=== PATIENT | female | born 1965 | race Caucasian/White ===

== ENCOUNTER → 2017-08-20 | Outpatient (CLI) | payer MEDICAID ==
--- NOTE | 2017-08-23 09:58 | MM ---
Reason for exam: screening (asymptomatic). Last mammogram was performed 1 year and 5 months ago. Physical Findings: A clinical breast exam by your physician is recommended on an annual basis and results should be correlated with mammographic findings. MG 3D Screening Mammo W/Cad Bilateral CC and MLO view(s) were taken. Prior study comparison: March 12, 2016, bilateral MG 3d diag mammo w/cad [facility]. March 12, 2015, left breast MG work up mamm w CAD LT. The breast tissue is heterogeneously dense. This may lower the sensitivity of mammography. Finding: There is questionable architectural distortion in the upper inner quadrant of the left breast. New finding since March 12, 2016 and March 12, 2015. ASSESSMENT: Incomplete: need additional imaging evaluation, BI-RAD 0 RECOMMENDATION: Special view mammogram of the right breast. If lesion persists on supplemental views, image directed ultrasound is recommended. [facility] will attempt to contact patient to return for supplemental views and ultrasound if indicated.
== END | disposition home or self-care (01) ==
LOC: RADMAMWWP 07:27
PROVIDERS: ATTEND Family Medicine
DX: Z12.31 Encounter for screening mammogram for malignant neoplasm of breast (principal)
CPT/HCPCS: 77063; G0202

== ENCOUNTER → 2017-08-25 | Outpatient (CLI) | payer MEDICAID ==
--- NOTE | 2017-08-26 08:19 | MM ---
Reason for exam: additional evaluation requested from abnormal screening. Last mammogram was performed less than 1 month ago. Physical Findings: Nurse Summary: 2cm nodule in the right breast at 12 o'clock (nurse yelena). MG 3D Work Up W/Cad RT Spot compression CC, spot compression MLO, and LM view(s) were taken of the right breast. Prior study comparison: August 20, 2017, bilateral MG 3d screening mammo w/cad. March 12, 2016, bilateral MG 3d diag mammo w/cad [facility]. The breast tissue is heterogeneously dense. This may lower the sensitivity of mammography. There are 3 large circumscribed masses in the central and lateral right breast measuring 2.0-2.3cm. Palpable marker placed. These results were verbally communicated with the patient and result sheet given to the patient on 08/25/17. ASSESSMENT: Incomplete: need additional imaging evaluation, BI-RAD 0 RECOMMENDATION: Ultrasound of the right breast.
--- NOTE | 2017-08-26 08:22 | USB ---
Reason for exam: additional evaluation requested from abnormal screening. US Breast Workup Limited RT Right breast ultrasound demonstrates a 2.2 x 1.6 x 2.3cm cystic lesion at 9 o'clock, a 2.2 x 1.9 x 1.1cm cystic lesion at 9 o'clock with some internal echoes and a 2.6 x 1.0 x 2.3cm cystic lesion at 9 o'clock. Left breast ultrasound demonstrates a 1.9 x 0.9 x 1.9cm cystic lesion at 10 o'clock. These are all benign. These results were verbally communicated with the patient and result sheet given to the patient on 08/25/17. ASSESSMENT: Benign, BI-RAD 2 RECOMMENDATION: Return to routine screening mammogram schedule for both breasts. Manage patient on a clinical basis. Cyst aspiration can be performed if symptomatic.
== END | disposition home or self-care (01) ==
LOC: RADMAMWWP 14:57
PROVIDERS: ATTEND Family Medicine
DX: R92.8 Other abnormal and inconclusive findings on diagnostic imaging of breast (principal)
CPT/HCPCS: 76642; G0206; G0279

== ENCOUNTER 2018-01-18 17:16 | Emergency (ER) | payer MEDICAID ==
[2018-01-18 17:59] VITALS: BP 116/75; PULSE 77; RESP 20; TEMP 98.1
[2018-01-18] MEDS ORDERED: DIPH,PERTUS(ACELL)TETVAC-LF 0.5 ML VIAL IM ONE (18:47)
--- NOTE | 2018-01-18 20:04 | XR ---
PROCEDURE: XR finger LT 3 views DATE AND TIME: 01/18/2018 7:28 PM REFERRING PHYSICIAN: Jay Chew CLINICAL INDICATION: PHH, Pain TECHNIQUE: 3 views of the fifth finger were obtained. COMPARISON: None FINDINGS: There is no fracture or malalignment. The tip of the fifth digit shows soft tissue lacerati on changes, but no soft tissue emphysema and no radiopaque foreign bodies. IMPRESSION: Soft tissue laceration, fifth digit.
--- NOTE | 2018-01-18 20:45 | ED ---
General Adult HPI - General Chief complaint: Wound/Laceration Stated complaint: finger lac Time Seen by Provider: 01/18/18 18:12 Source: patient, RN notes reviewed Mode of arrival: ambulatory Limitations: no limitations - History of Present Illness Initial comments: 52-year-old female presents to the emergency department for a laceration to the fifth digit on the left hand. States she was using a mandolin earlier this evening to slice an egg plant when she slipped and cut through her fingernail. Patient immediately came to the ER after that. Patient states she does not know when she had her last tetanus. Patient states she has full range of motion of affected finger. - Related Data Home Medications Medication Instructions Recorded Confirmed Levothyroxine Sodium [Synthroid] 25 mcg PO DAILY 08/08/17 08/08/17 Previous Rx's Medication Instructions Recorded Hydrocodone/Acetaminophen [[place] 1 each PO Q6HR PRN #20 tab 08/08/17 5-325] Ibuprofen [Motrin] 600 mg PO Q8HR PRN #20 tab 08/08/17 Cephalexin [Keflex] 500 mg PO Q12HR #20 cap 01/18/18 Allergies Allergy/AdvReac Type Severity Reaction Status Date / Time No Known Allergies Allergy Verified 01/18/18 17:59 Review of Systems ROS Statement: Those systems with pertinent positive or pertinent negative responses have been documented in the HPI. ROS Other: All systems not noted in ROS Statement are negative. Past Medical History Past Medical History: Thyroid Disorder History of Any Multi-Drug Resistant Organisms: None Reported Past Surgical History: No Surgical Hx Reported Past Psychological History: No Psychological Hx Reported Smoking Status: Never smoker Past Alcohol Use History: Occasional Past Drug Use History: None Reported General Exam Limitations: no limitations General appearance: alert Respiratory exam: Present: normal lung sounds bilaterally. Absent: respiratory distress, wheezes, rales, rhonchi, stridor Cardiovascular Exam: Present: regular rate, normal rhythm, normal heart sounds. Absent: systolic murmur, diastolic murmur, rubs, gallop, clicks Extremities exam: Present: full ROM, tenderness, normal capillary refill, other (2 cm laceration starting at the tip of the fifth digit on the left hand and extending up through the nail.). Absent: normal inspection Course Vital Signs 01/18/18 17:57 Temperature 98.1 F Pulse Rate 77 Respiratory 20 Rate Blood Pressure 116/75 O2 Sat by Pulse 98 Oximetry Procedures - Procedures Initial comment: Affected area fifth digit of left hand was numbed by a digital block using 2 cc of 1% lidocaine. Wound was then irrigated with sterile water and cleaned with chlorhexidine. Finger was further locally numbed with another 2 mL of 1% lidocaine. The lateral side of the nail was removed. 5 simple interrupted sutures were applied to the laceration. One of the sutures was through the nail. She was told to return in 10 days to have sutures removed unless she noticed signs of infection including swelling, heat, discharge, increased redness. Medical Decision Making - Medical Decision Making 52-year-old female presents to the emergency department for laceration extending through the nail of the fifth digit. X-ray was obtained which showed no damage to the bone. Lateral part of nail was removed and the laceration was sutured with 5 simple interrupted sutures. Patient was given Keflex to prevent infection. Patient will follow-up in 10 days to have sutures removed. Patient will also come back to the emergency Department if she notices any signs of infection such as discharge, swelling, or increased heat or redness. Disposition Clinical Impression: Laceration Disposition: HOME SELF-CARE Condition: Good Instructions: Care For Your Stitches (ED), Laceration (ED) Additional Instructions: Please return to ER if you notice any signs of infection such as discharge, increased swelling, heat and redness. Please return to have stitches removed in 10 days. Prescriptions: Cephalexin [Keflex] 500 mg PO Q12HR #20 cap Referrals: Chari Broussard MD [Primary Care Provider] - 1-2 days Decision Time: 20:38
== END 2018-01-18 20:45 | disposition home or self-care (01) ==
LOC: EC 17:16
DX: S61.317A Laceration without foreign body of left little finger with damage to nail, initial encounter (principal); E07.9 Disorder of thyroid, unspecified; Z79.899 Other long term (current) drug therapy; Z23 Encounter for immunization; W26.8XXA Contact with other sharp object(s), not elsewhere classified, initial encounter; Y93.89 Activity, other specified
CPT/HCPCS: 11760; 90471; 90715; 99283

== ENCOUNTER 2018-03-25 07:28 | Day surgery (SDC) | payer MEDICAID ==
[2018-03-07 10:02] VITALS: BMI 24.1
[~2018-03-25 07:28] MED LIST: LACTATED RINGERS 1,000 ML IV SCH
[2018-03-25 07:55] VITALS: RESP 16; TEMP 98.7
[2018-03-25] MEDS ORDERED: LIDOCAINE 1% 20 ML VIAL (10MG/ML) FOR IV START INTRADERMA ONE (08:09)
[2018-03-25] MEDS ORDERED: PROPOFOL 10 MG/ML 20 ML VIAL IV ONE (08:25)
--- NOTE | 2018-03-25 08:42 | P.PCN ---
Date of Procedure: 03/25/18 Procedure(s) Performed: BRIEF HISTORY: Patient is a 52-year-old pleasant white female, scheduled for an elective colonoscopy as a part of screening for colorectal neoplasia. PROCEDURE PERFORMED: Colonoscopy. PREOPERATIVE DIAGNOSIS: Screening for colon cancer. IV sedation per Anesthesia. PROCEDURE: After informed consent was obtained, the patient, was brought into the endoscopy unit. IV sedation was administered by Anesthesia under continuous monitoring. Digital rectal examination was normal. Initially the Olympus CF- 160 flexible video colonoscope was then inserted in the rectum, gradually advanced into the cecum without any difficulty. Careful examination was performed as the scope was gradually being withdrawn. Ileocecal valve and the appendiceal orifice were visualized and appeared normal. Prep was excellent. Mucosa of the cecum, ascending colon, transverse colon, descending colon, sigmoid colon, and rectum appeared normal. Retroflexion was performed in the rectum and no lesions were seen. The patient tolerated the procedure well. IMPRESSION: Normal-appearing colon from rectum to cecum with no evidence of colorectal neoplasia . RECOMMENDATIONS: Findings of this examination were discussed with the patient less her family. She was advised to have a repeat screening colonoscopy in .
[2018-03-25 09:03] VITALS: BP 102/71; PULSE 77
== END 2018-03-25 09:23 | disposition home or self-care (01) ==
LOC: ORWHC2ENDO 07:28
PROVIDERS: ATTEND Internal Medicine Gastroenterology
DX: Z12.11 Encounter for screening for malignant neoplasm of colon (principal); E07.9 Disorder of thyroid, unspecified; Z79.899 Other long term (current) drug therapy
CPT/HCPCS: 81025; 45378; J2704

== ENCOUNTER → 2018-08-15 | Outpatient (CLI) | payer MEDICAID ==
[2018-08-15 16:02] LABS: HCT 42.5 % (34.0-46.0); HGB 13.6 gm/dL (11.4-16.0); MCHC 32.1 g/dL (31.0-37.0); MCV 96.6 fL (80.0-100.0); Platelet Count 277 k/uL (150-450); RDW 12.5 % (11.5-15.5); WBC 5.6 k/uL (3.8-10.6)
[2018-08-15 16:30] LABS: T4, Free (Free Thyroxine) 1.12 ng/dL (0.78-2.19)
[2018-08-16 04:23] LABS: Vitamin D 25 Hydroxy 33.1 ng/mL (30.0-100.0)
[2018-08-16 04:28] LABS: Progesterone <0.2 ng/mL
== END | disposition home or self-care (01) ==
LOC: LABWHC1 14:55
PROVIDERS: ATTEND Obstetrics & Gynecology
DX: E03.9 Hypothyroidism, unspecified (principal); R53.83 Other fatigue; Z78.0 Asymptomatic menopausal state
CPT/HCPCS: 36415; 82306; 82607; 82670; 83001; 84144; 84403; 84439; 84443; 85027

== ENCOUNTER → 2018-09-26 | Outpatient (CLI) | payer MEDICAID | END | disposition home or self-care (01) | LOC: LABWHC1 08:43 | PROVIDERS: ATTEND Obstetrics & Gynecology | DX: R53.83 Other fatigue (principal); R14.0 Abdominal distension (gaseous); E55.9 Vitamin D deficiency, unspecified | CPT/HCPCS: 36415; 82670; 83001; 84403 ==

== ENCOUNTER → 2018-12-29 | Outpatient (CLI) | payer MEDICAID ==
--- NOTE | 2018-12-30 09:15 | MM ---
Reason for exam: screening (asymptomatic). Last mammogram was performed 1 year and 4 months ago. Physical Findings: A clinical breast exam by your physician is recommended on an annual basis and results should be correlated with mammographic findings. MG 3D Screening Mammo W/Cad Bilateral CC and MLO view(s) were taken. Prior study comparison: August 25, 2017, right breast MG 3d work up w/cad RT. August 20, 2017, bilateral MG 3d screening mammo w/cad. The breast tissue is extremely dense which could obscure a lesion on mammography. No suspicious abnormality. ASSESSMENT: Negative, BI-RAD 1 RECOMMENDATION: Routine screening mammogram of both breasts in 1 year.
== END ==
LOC: RADMAMWWP 15:50
PROVIDERS: ATTEND Obstetrics & Gynecology
DX: Z12.31 Encounter for screening mammogram for malignant neoplasm of breast (principal)
CPT/HCPCS: 77063; 77067

== ENCOUNTER → 2018-12-29 | Outpatient (CLI) | payer MEDICAID ==
--- NOTE | 2018-12-30 07:24 | US ---
EXAMINATION TYPE: US carotid duplex BILAT DATE OF EXAM: 12/29/2018 COMPARISON: NONE CLINICAL HISTORY: R09.89 Carotid bruit. Bruit EXAM MEASUREMENTS: RIGHT: Peak Systolic Velocity (PSV) cm/sec ----- Right CCA: 76.4 ----- Right ICA: 121.1 ----- Right ECA: 108.2 ICA/CCA ratio: 1.6 RIGHT: End Diastole cm/sec ----- Right CCA: 30.2 ----- Right ICA: 62.9 ----- Right ECA: 25.4 LEFT: Peak Systolic Velocity (PSV) cm/sec ----- Left CCA: 80.9 ----- Left ICA: 106.9 ----- Left ECA: 96.5 ICA/CCA ratio: 1.3 LEFT: End Diastole cm/sec ----- Left CCA: 32.5 ----- Left ICA: 55.1 ----- Left ECA: 22.8 VERTEBRALS (direction of flow): Right Vertebral: Antegrade Left Vertebral: Antegrade Rhythm: Normal Bilateral intimal thickening, no elevated velocities, no significant stenosis. IMPRESSION: No stenosis Criteria for Assigning % of Stenosis / Diameter reduction (Estimation based on the indirect measurements of the internal carotid artery velocities (ICA PSV). 1. Normal (no stenosis)=ICA PSV < 125 cm/s: ratio < 2.0: ICA EDV<40 cm/s. 2. Less than 50% stenosis=ICA PSV < 125 cm/s: ratio < 2.0: ICA EDV<40 cm/s. 3. 50 to 69% stenosis=ICA PSV of 125 to 230 cm/s: ration 2.0 ? 4.0: ICA EDV 40-100 cm/s. 4. Greater than 70% stenosis to near occlusion= ICA PSV > 230 cm/s: ratio > 4.0: ICA EDV > 100 cm/s. 5. Near occlusion= ICA PSV velocities may be low or undetectable: variable ratio and ICA EDV. 6. Total occlusion=unable to detect flow.
== END | disposition home or self-care (01) ==
LOC: RADUSWWP 15:53
PROVIDERS: ATTEND Family Medicine
DX: R09.89 Other specified symptoms and signs involving the circulatory and respiratory systems (principal)
CPT/HCPCS: 93880

== ENCOUNTER → 2019-02-08 | Outpatient (CLI) | payer MEDICAID ==
[2019-02-08 19:42] LABS: T4, Free (Free Thyroxine) 1.2 ng/dL (0.80-1.80)
== END ==
LOC: LABWHC1 13:13
PROVIDERS: ATTEND Obstetrics & Gynecology
DX: F41.9 Anxiety disorder, unspecified (principal); N95.1 Menopausal and female climacteric states; R53.83 Other fatigue
CPT/HCPCS: 36415; 82670; 83001; 84403; 84439; 84443

== ENCOUNTER → 2019-10-09 | Outpatient (CLI) | payer MEDICAID ==
[2019-10-09 18:52] LABS: Estradiol 41.6 pg/mL; Follicle Stimulating Hormone 35.8 mIU/mL; T4, Free (Free Thyroxine) 1.1 ng/dL (0.80-1.80)
== END | disposition home or self-care (01) ==
LOC: LABWHC1 13:56
PROVIDERS: ATTEND Obstetrics & Gynecology
DX: E03.9 Hypothyroidism, unspecified (principal); R53.83 Other fatigue; E55.9 Vitamin D deficiency, unspecified; G47.00 Insomnia, unspecified
CPT/HCPCS: 36415; 82306; 82670; 83001; 84403; 84439; 84443

== ENCOUNTER → 2020-07-30 | Outpatient (CLI) | payer MEDICAID ==
[2020-07-30 17:02] LABS: ALT 11 U/L (8-44); AST 15 U/L (13-35); African American GFR (CKD) 97.6 (60.0-200.0); Albumin/Globulin Ratio 2.05 (1.60-3.17); Alkaline Phosphatase 64 U/L (41-126); BUN/Creat Ratio 23.75 Ratio (12.00-20.00); Calcium 9.6 mg/dL (8.7-10.3); Carbon Dioxide 31.1 mmol/L (21.6-31.8); Chloride 103 mmol/L (96-109); Chol/HDL Ratio 2.65; Cholesterol 225 mg/dL (0-200); Globulin 2.2 g/dL (1.6-3.3); Glucose 79 mg/dL (70-110); Non-African American GFR(CKD) 84.2 (60.0-200.0); Potassium 4.2 mmol/L (3.5-5.5); Sodium 139 mmol/L (135-145); Total Bilirubin 0.6 mg/dL (0.3-1.2); Total Protein 6.7 g/dL (6.2-8.2); Triglycerides <50.0 mg/dL (0.0-149.0)
[2020-07-30 17:10] LABS: Estradiol 42.3 pg/mL; Follicle Stimulating Hormone 49.4 mIU/mL
== END | disposition home or self-care (01) ==
LOC: LABWHC1 08:08
PROVIDERS: ATTEND Obstetrics & Gynecology
DX: Z00.00 Encounter for general adult medical examination without abnormal findings (principal); R53.83 Other fatigue; E03.9 Hypothyroidism, unspecified; E34.50 Androgen insensitivity syndrome, unspecified; N95.1 Menopausal and female climacteric states; R37 Sexual dysfunction, unspecified
CPT/HCPCS: 36415; 80053; 80061; 82306; 82670; 83001; 84144; 84403; 84436; 84439; 84443; 84481

== ENCOUNTER → 2020-10-29 | Outpatient (CLI) | payer MEDICAID, OTHER ==
--- NOTE | 2020-10-29 13:28 | MM ---
Reason for exam: screening (asymptomatic). Last mammogram was performed 1 year and 10 months ago. History: Patient is postmenopausal. Taking estrogen for 1 year 6 months. Taking progesterone for 1 year 6 months. Physical Findings: A clinical breast exam by your physician is recommended on an annual basis and results should be correlated with mammographic findings. MG 3D Screening Mammo W/Cad Bilateral CC and MLO view(s) were taken. Prior study comparison: December 29, 2018, bilateral MG 3d screening mammo w/cad. August 25, 2017, right breast MG 3d work up w/cad RT. The breast tissue is heterogeneously dense. This may lower the sensitivity of mammography. There is no discrete abnormality. ASSESSMENT: Negative, BI-RAD 1 RECOMMENDATION: Routine screening mammogram of both breasts in 1 year.
== END | disposition home or self-care (01) ==
LOC: RADMAMWWP 07:02
PROVIDERS: ATTEND Obstetrics & Gynecology
DX: Z12.31 Encounter for screening mammogram for malignant neoplasm of breast (principal)
CPT/HCPCS: 77063; 77067

== ENCOUNTER → 2021-01-31 | Outpatient (CLI) | payer MEDICAID, OTHER ==
--- NOTE | 2021-01-31 11:56 | MR ---
EXAMINATION TYPE: MR shoulder LT wo con DATE OF EXAM: 01/31/2021 COMPARISON: None HISTORY: Pain TECHNIQUE: Multiplanar, multisequence imaging of the left shoulder is performed without contrast. FINDINGS: Supraspinatus tendon: There is increased signal along the undersurface of the distal supraspinatus te ndon extending a length of 6 mm in transverse dimension of 4.6 mm involving the mid and posterior fib ers of the supraspinatus tendon extending from the bursal surface to the undersurface compatible with a partial through thickness tear. No retraction. Infraspinatus and subscapularis tendons: Subscapularis tendon intact. There is minimal involvement of the insertion of the anterior fibers of the infraspinatus tendon with regard to the posterior fiber supraspinatus tendon which encompasses portions of the conjoined tendon. Bony labrum are grossly intact by non arthrogram technique. No sizable joint effusion. Glenohumeral l igament appears intact. No spinal significant marrow edema or contusion. There is arthropathy of the AC joint which results in mild mass effect upon the supraspinatus tendon and muscle findings compatib le with mild impingement. The bicipital tendon is well situated within the bicipital groove. Intracapsular portions of the jamie ps tendon have a normal appearance. Biceps anchor intact. IMPRESSION: 1. The posterior fibers of the distal supraspinatus tendon near its insertion demonstrate tendinosis and a partial through thickness tear measuring transverse dimension of 4.6 mm. There likely is some i nvolvement of a minimal portion of the anterior fibers of the infraspinatus tendon through the conjoi william portion of the tendon. No retraction. 2. No evidence of labral tear.
== END ==
LOC: RADMRIMAIN 10:07
PROVIDERS: ATTEND Orthopaedic Surgery
DX: M75.112 Incomplete rotator cuff tear or rupture of left shoulder, not specified as traumatic (principal); M67.814 Other specified disorders of tendon, left shoulder

== ENCOUNTER → 2021-06-02 | Outpatient (CLI) | payer MEDICAID ==
[2021-06-02 15:54] LABS: Appearance,Urine Clear (Clear); Bilirubin,Urine Negative (Negative); Blood,Urine Negative (Negative); Color,Urine Yellow; Glucose,Urine (UA) Negative (Negative); Ketones,Urine Negative (Negative); Leukocyte Esterase,Urine Negative (Negative); Nitrite,Urine Negative (Negative); PH, Urine 6.5 (5.0-8.0); Protein,Urine Negative (Negative); Specific Gravity,Urine 1.017 (1.001-1.035); Urobilinogen,Urine <2.0 mg/dL (<2.0)
[2021-06-02 18:59] LABS: Basophils # (A) 0.04 X 10*3/uL (0.00-0.10); Basophils % (A) 0.8 %; Eosinophils # (A) 0.25 X 10*3/uL (0.04-0.35); Eosinophils % (A) 4.8 %; HCT 40.3 % (37.2-46.3); Lymphocytes # (A) 1.78 X 10*3/uL (0.90-5.00); Lymphocytes % (A) 33.9 %; MCH 31.6 pg (27.0-32.0); MCHC 32.3 g/dL (32.0-37.0); MCV 97.8 fL (80.0-97.0); Mean Platelet Volume 10.5 fL (9.5-12.2); Monocytes # (A) 0.42 X 10*3/uL (0.20-1.00); Neutrophils # (A) 2.74 X 10*3/uL (1.80-7.70); Neutrophils % (A) 52.1 %; Platelet Count 255 X 10*3/uL (140-440); RBC 4.12 X 10*6/uL (4.10-5.20); RDW 12.2 % (11.5-14.5); WBC 5.25 X 10*3/uL (4.50-10.00)
[2021-06-02 19:32] LABS: Protein, Total 7.1 g/dL (6.2-8.2)
[2021-06-02 20:14] LABS: ALT 12 U/L (8-44); AST 19 U/L (13-35); African American GFR (CKD) 119.8 (60.0-200.0); Albumin/Globulin Ratio 1.84 (1.60-3.17); Alkaline Phosphatase 71 U/L (41-126); C Reactive Protein <0.4 mg/dL (0.0-0.8); Calcium 9.1 mg/dL (8.7-10.3); Carbon Dioxide 28.5 mmol/L (21.6-31.8); Chloride 104 mmol/L (96-109); Globulin 2.5 g/dL (1.6-3.3); Glucose 108 mg/dL (70-110); Non-African American GFR(CKD) 103.3 (60.0-200.0); Potassium 3.9 mmol/L (3.5-5.5); Rheumatoid Factor, Qnt 8 IU/mL (0-15); Sodium 141 mmol/L (135-145); Total Bilirubin 0.8 mg/dL (0.3-1.2); Total Protein 7.1 g/dL (6.2-8.2)
[2021-06-02 20:21] LABS: Creatine Kinase 116 U/L (26-186); Uric Acid 3.1 mg/dL (2.9-7.7)
[2021-06-02 20:54] LABS: Hepatitis B Surface Antigen Non-Reactive (Non-Reactive); Hepatitis C IgG Antibody Non-Reactive (Non-Reactive)
[2021-06-02 21:17] LABS: Erythrocyte Sedimentation Rate 8 mm/Hr (0-30)
[2021-06-02 23:47] LABS: Anti-DNA, DS unit <1.0 IU/mL; Cyclic Citrull Pep IgG Unit 0.8 U/mL; Cyclic Citrullinated Pep IgG NEGATIVE (NEGATIVE); DNA Double-Stranded NEGATIVE (NEGATIVE)
[2021-06-02 23:48] LABS: Anti-Smith Ab Interp NEGATIVE (NEGATIVE); Cardiolipin Ab IgG Interp NEGATIVE (NEGATIVE); Cardiolipin Ab IgM Interp NEGATIVE (NEGATIVE); Cardiolipin IgA Antibody <2.0 U/mL; Cardiolipin IgM Antibody <1.5 U/mL; Centromere Antibody <0.2 AI; Centromere Antibody Interp NEGATIVE (NEGATIVE); Scleroderma SC-70 Ab <0.2 AI
[2021-06-03 09:18] LABS: HLA B27 NEGATIVE
[2021-06-03 10:31] LABS: Angiotensin-1 Converting Enz. 37 U/L (8-52)
[2021-06-03 10:43] LABS: Free Kappa Lt Chain Qnt, Serum 1.42 mg/dL (0.33-1.94)
[2021-06-03 13:24] LABS: Gamma Globulin 1.03 g/dL (0.70-1.50)
[2021-06-03 13:34] LABS: Complement C3 96.3 mg/dL (80.0-207.0)
[2021-06-03 13:40] LABS: APTT 43 Sec(s) (<43); APTT 1:1 Mix 39 Sec(s) (<43); Dilute Russell Viper Venom 33 Sec(s) (<44)
[2021-06-03 13:45] LABS: C-ANCA <1:20 Titer (<1:20)
[2021-06-03 13:46] LABS: Histone Antibody 0.4 UNITS (<1.0)
== END | disposition home or self-care (01) ==
LOC: LABWHC1 14:19
PROVIDERS: ATTEND Internal Medicine Rheumatology
DX: M79.641 Pain in right hand (principal); M79.642 Pain in left hand; M79.671 Pain in right foot; M79.672 Pain in left foot
CPT/HCPCS: 36415; 80053; 81003; 82088; 82164; 82306; 82550; 83516; 83520; 83883; 84165; 84439; 84443; 84550; 85025; 85613; 85652; 85730; 86038; 86039; 86140; 86147; 86160; 86162; 86200; 86225; 86235; 86255; 86334; 86431; 86803; 86812; 87340

== ENCOUNTER → 2021-06-02 | Outpatient (CLI) | payer MEDICAID ==
--- NOTE | 2021-06-02 16:40 | XR ---
Bilateral feet HISTORY: Pain, M79.671 M79.672 3 views of each foot Bone mineralization, joint spaces and alignment are maintained. There is no fracture or dislocation. No evident bone erosion or significant hypertrophic change. Some osteoarthritic change present at the metatarsophalangeal joints of the first digits. 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
--- NOTE | 2021-06-02 16:42 | XR ---
AP pelvis HISTORY:M79.671 M79.672 Single frontal view the pelvis Bone mineralization, joint spaces and alignment are maintained. IMPRESSION: Normal pelvis.
--- NOTE | 2021-06-02 16:44 | XR ---
Cervical spine HISTORY:M79.671 M79.672 5 views of the cervical spine There is multilevel facet arthropathy change. Cervical vertebral bodies show multilevel spondylosis. There is mild foraminal encroachment on the left at C5-6, C6-7 and on the right at C3-4, C5-6. There is reversal the normal cervical lordosis. Loss of disc height is present greatest at C5-6 and C6-7. P revertebral soft tissues are normal. Cervical vertebral bodies show preserved height. IMPRESSION: Degenerative disc disease, facet arthropathy, foraminal encroachment. Loss of lordosis ca n be seen in patient with muscle spasm.
--- NOTE | 2021-06-02 16:45 | XR ---
Bilateral hands and bilateral wrists HISTORY:M79.642 M79.641 3 views of each hand, 4 views of each wrist submitted Bone mineralization, joint spaces and alignment are maintained. No significant bone erosion. No evide nt ankylosis. IMPRESSION: Normal hands and wrists.
--- NOTE | 2021-06-02 16:47 | XR ---
Lumbosacral spine HISTORY: M 45.9, pain 6 views of the lumbosacral spine Is no evident spondylolysis or spondylolisthesis. Lumbar vertebral bodies show preserved height and b one mineralization. Sclerosis in the posterior elements likely due to some facet arthropathy change. There is a slight spinal curvature. There is multilevel spondylosis. Loss of disc height is greatest at L5-S1 with associated vacuum phenomenon. Indeterminate calcifications are present in the right upp er quadrant, the underlying granuloma, difficult to exclude cholelithiasis. IMPRESSION: Degenerative disc disease.
--- NOTE | 2021-06-02 16:48 | XR ---
Bilateral ankles HISTORY:M79.672 3 views of each ankle Bone mineralization, joint spaces and alignment are maintained. No significant soft tissue swelling. IMPRESSION: Normal ankles.
== END | disposition home or self-care (01) ==
LOC: RADXRMAIN 14:46
PROVIDERS: ATTEND Internal Medicine Rheumatology
DX: M51.37 Other intervertebral disc degeneration, lumbosacral region (principal); M50.30 Other cervical disc degeneration, unspecified cervical region; M47.892 Other spondylosis, cervical region; M19.079 Primary osteoarthritis, unspecified ankle and foot
CPT/HCPCS: 72050; 72110; 72170

== ENCOUNTER → 2021-10-13 | Outpatient (CLI) | payer MEDICAID, OTHER | END | disposition home or self-care (01) | LOC: LABWHC1 12:30 | PROVIDERS: ATTEND Emergency Medicine | DX: Z20.822 Contact with and (suspected) exposure to COVID-19 (principal) | CPT/HCPCS: 87635 ==

== ENCOUNTER → 2021-10-14 | Outpatient (CLI) | payer MEDICAID, OTHER | END | disposition home or self-care (01) | LOC: LABWHC1 12:43 | PROVIDERS: ATTEND Emergency Medicine | DX: Z20.822 Contact with and (suspected) exposure to COVID-19 (principal) | CPT/HCPCS: 87635 ==

== ENCOUNTER → 2022-04-09 | Outpatient (CLI) | payer MEDICAID ==
[2022-04-09 23:13] LABS: Estradiol 52.1 pg/mL; Follicle Stimulating Hormone 22.9 mIU/mL
== END | disposition home or self-care (01) ==
LOC: LABWHC1 14:52
PROVIDERS: ATTEND Obstetrics & Gynecology
DX: N95.1 Menopausal and female climacteric states (principal); N64.4 Mastodynia
CPT/HCPCS: 36415; 82670; 83001; 84144; 84443; 84481

== ENCOUNTER → 2022-06-01 | Outpatient (CLI) | payer MEDICAID ==
[2022-06-01 09:28] LABS: Appearance,Urine Clear (Clear); Bilirubin,Urine Negative (Negative); Blood,Urine Negative (Negative); Color,Urine Yellow; Glucose,Urine (UA) Negative (Negative); Ketones,Urine Negative (Negative); Leukocyte Esterase,Urine Negative (Negative); Nitrite,Urine Negative (Negative); PH, Urine 5.5 (5.0-8.0); Protein,Urine Negative (Negative); Specific Gravity,Urine 1.021 (1.001-1.035); Urobilinogen,Urine <2.0 mg/dL (<2.0)
[2022-06-01 11:01] LABS: Basophils # (A) 0.06 X 10*3/uL (0.00-0.10); Basophils % (A) 1.2 %; Eosinophils # (A) 0.23 X 10*3/uL (0.04-0.35); Eosinophils % (A) 4.8 %; HCT 40.3 % (37.2-46.3); HGB 12.6 g/dL (12.0-15.0); Immature Grans, Automated 0.4 %; Lymphocytes # (A) 1.45 X 10*3/uL (0.90-5.00); Lymphocytes % (A) 30.1 %; MCH 30.4 pg (27.0-32.0); MCHC 31.3 g/dL (32.0-37.0); MCV 97.3 fL (80.0-97.0); Mean Platelet Volume 10.5 fL (9.5-12.2); Monocytes # (A) 0.49 X 10*3/uL (0.20-1.00); Monocytes % (A) 10.2 %; NRBC Per 100 WBC 0 /100 WBCS (0.0-0.0); Neutrophils # (A) 2.56 X 10*3/uL (1.80-7.70); Neutrophils % (A) 53.3 %; Platelet Count 263 X 10*3/uL (140-440); RBC 4.14 X 10*6/uL (4.10-5.20); RDW 12.4 % (11.5-14.5); WBC 4.81 X 10*3/uL (4.50-10.00)
[2022-06-01 11:09] LABS: Protein, Total 6.9 g/dL (6.2-8.2)
[2022-06-01 11:16] LABS: Hepatitis B Surface Antigen Nonreactive (Nonreactive); Hepatitis C IgG Antibody Nonreactive (Nonreactive)
[2022-06-01 11:17] LABS: ALT 35 U/L (8-44); AST 30 U/L (13-35); Albumin 4.7 g/dL (3.8-4.9); Albumin/Globulin Ratio 2.14 (1.60-3.17); Alkaline Phosphatase 95 U/L (41-126); BUN/Creat Ratio 24.14 Ratio (12.00-20.00); Blood Urea Nitrogen 16.9 mg/dL (9.0-27.0); C Reactive Protein <0.30 mg/dL (0.00-0.80); Calcium 9.1 mg/dL (8.7-10.3); Carbon Dioxide 27.3 mmol/L (20.0-27.5); Chloride 104 mmol/L (96-109); Creatine Kinase 109 U/L (26-186); Globulin 2.2 g/dL (1.6-3.3); Glucose 96 mg/dL (70-110); Non-African American GFR(CKD) 97.5 (60.0-200.0); Potassium 4.3 mmol/L (3.5-5.5); Sodium 140 mmol/L (135-145); Total Protein 6.9 g/dL (6.2-8.2); Uric Acid 2.8 mg/dL (2.9-7.7)
[2022-06-01 11:28] LABS: Erythrocyte Sedimentation Rate 3 mm/Hr (0-30)
[2022-06-01 11:31] LABS: Complement C3 94.6 mg/dL (80.0-207.0)
[2022-06-01 11:32] LABS: Rheumatoid Factor, Qnt <10 IU/mL (0-15)
[2022-06-01 22:12] LABS: Anti-DNA, DS unit <1.0 IU/mL; Anti-Smith Ab Interp NEGATIVE (NEGATIVE); Cardiolipin Ab IgG Interp NEGATIVE (NEGATIVE); Cardiolipin Ab IgM Interp NEGATIVE (NEGATIVE); Cardiolipin IgA Antibody 2.1 U/mL; Cardiolipin IgM Antibody <1.5 U/mL; Centromere Antibody <0.2 AI; Centromere Antibody Interp NEGATIVE (NEGATIVE); Cyclic Citrull Pep IgG Unit <0.5 U/mL; Cyclic Citrullinated Pep IgG NEGATIVE (NEGATIVE); DNA Double-Stranded NEGATIVE (NEGATIVE); Scleroderma SC-70 Ab <0.2 AI
[2022-06-02 10:17] LABS: Angiotensin-1 Converting Enz. 39 U/L (8-52)
[2022-06-02 11:35] LABS: Albumin 4.46 g/dL (3.80-4.90); Gamma Globulin 0.95 g/dL (0.70-1.50)
[2022-06-02 11:46] LABS: Free Kappa Lt Chain Qnt, Serum 1.54 mg/dL (0.33-1.94); Free Lambda Lt Chain Qnt, Seru 1.12 mg/dL (0.57-2.63)
[2022-06-02 12:08] LABS: HLA B27 NEGATIVE
[2022-06-02 14:21] LABS: APTT 40 Sec(s) (<43); Dilute Russell Viper Venom 37 Sec(s) (<44)
[2022-06-02 15:32] LABS: C-ANCA <1:20 Titer (<1:20)
== END | disposition home or self-care (01) ==
LOC: LABWHC1 07:43
PROVIDERS: ATTEND Internal Medicine Rheumatology
DX: M35.00 Sjogren syndrome, unspecified (principal)
CPT/HCPCS: 36415; 80053; 81003; 82164; 82306; 82550; 83520; 83883; 84165; 84439; 84443; 84550; 85025; 85613; 85652; 85730; 86038; 86039; 86140; 86147; 86160; 86162; 86200; 86225; 86235; 86255; 86334; 86431; 86803; 86812; 87340

== ENCOUNTER → 2022-11-27 | Outpatient (CLI) | payer BC ==
--- NOTE | 2022-12-03 10:21 | P.HOLTER ---
48 hour Holter monitor shows sinus mechanism in sinus tachycardia Occasional premature beats No significant arrhythmias
--- NOTE | 2022-12-04 11:25 | HM ---
48 hour Holter monitor shows sinus mechanism in sinus tachycardia Occasional premature beats No significant arrhythmias MTDD
== END | disposition home or self-care (01) ==
LOC: RADECHMAIN 07:25
PROVIDERS: ATTEND Family Medicine
DX: R00.2 Palpitations (principal); R00.0 Tachycardia, unspecified
CPT/HCPCS: 93225; 93226

== ENCOUNTER → 2023-08-23 | Outpatient (CLI) | payer BC ==
--- NOTE | 2023-08-23 08:37 | MM ---
Reason for Exam: Screening (asymptomatic). Last mammogram was performed 1 year(s) and 5 month(s) ago. Patient History: Menarche at age 17. First Full-Term at age 21. Postmenopausal. Patient has history of breast feeding. Currently using Estrogen, for 3 years, 6 months. Currently using Progesterone, for 3 years, 6 months. Risk Values: Jacquelyn 5 year model risk: 0.8%. NCI Lifetime model risk: 5.3%. Prior Study Comparison: 12/29/2018 Bilateral Screening Mammogram, [facility]. 10/29/2020 Bilateral Screening Mammogram, [facility]. 04/06/2022 Bilateral MG 3D screening mammo w/cad, [facility]. Tissue Density: The breast tissue is heterogeneously dense. This may lower the sensitivity of mammography. Findings: Analyzed By CAD. There is no suspicious group of microcalcifications or new suspicious mass in either breast. Benign vascular calcifications within the right breast. Overall Assessment: Benign, BI-RAD 2 Management: Screening Mammogram of both breasts in 1 year. A clinical breast exam by your physician is recommended on an annual basis and results should be correlated with mammographic findings. Note on Jacquelyn scores and lifetime risk: 1. A Jacquelyn score greater than 3% is considered moderate risk. If this is the case, consider specialist referral to assess eligibility for a risk reducing agent. If overall lifetime risk for the development of breast cancer is 20% or higher, the patient may qualify for future screening with alternating mammogram and breast MRI. Electronically signed and approved by: Beny Keane D.O.
== END | disposition home or self-care (01) ==
LOC: RADMAMWWP 06:49
PROVIDERS: ATTEND Obstetrics & Gynecology
DX: Z12.31 Encounter for screening mammogram for malignant neoplasm of breast (principal); Z78.0 Asymptomatic menopausal state
CPT/HCPCS: 77063; 77067